=== PATIENT | female | born 1990 | race Hispanic/Latino ===

== ENCOUNTER 2021-08-02 13:53 | Emergency (ER) | payer SELFPAY ==
[~2021-08-02] VITALS: Ht 154.9 cm; Wt 93.2 kg
[2021-08-02] MEDS ORDERED: KETOROLAC TROMETHAMINE 60 MG/2 ML VIAL IM ONE (14:30)
[2021-08-02] MEDS ORDERED: KETOROLAC TROMETHAMINE 60 MG/2 ML VIAL ONE (14:37)
[2021-08-02] MEDS ORDERED: PREDNISONE20 MG PO (15:03)
[2021-08-02] MEDS ORDERED: AMOXICILLIN500 MG PO (15:03)
[2021-08-02] MEDS ORDERED: MOTRIN200 MG PO (15:03)
[2021-08-02] MEDS ORDERED: VENTOLIN HFA18 GM INH (15:03)
== END 2021-08-02 15:28 | disposition home or self-care (01) ==
LOC: FSED 14:01
DX: R07.89 Other chest pain (principal); J06.9 Acute upper respiratory infection, unspecified; R05.9 Cough, unspecified
CPT/HCPCS: 71046; 81003; 81025; 93005; 96372; 99283; J1885